=== PATIENT | female | born 1955 | race Caucasian/White ===

== ENCOUNTER 2024-02-06 11:51 | Outpatient (CLI) | payer OTHER, MEDICAID | END 2024-02-06 11:52 | disposition home or self-care (01) | LOC: NAV RAD 11:51 | PROVIDERS: ATTEND Nurse Practitioner Family | DX: M54.2 Cervicalgia (principal); M47.812 Spondylosis without myelopathy or radiculopathy, cervical region | CPT/HCPCS: 72040 ==

== ENCOUNTER 2024-03-11 09:26 | Outpatient (CLI) | payer OTHER | END 2024-03-11 09:27 | disposition home or self-care (01) | LOC: NAV RAD 09:26 | PROVIDERS: ATTEND Nurse Practitioner Family | DX: M47.812 Spondylosis without myelopathy or radiculopathy, cervical region (principal) | CPT/HCPCS: 72050 ==